=== PATIENT | male | born 1950 | race Caucasian/White ===

== ENCOUNTER → 2016-11-06 | Day surgery (SDC) | payer OTHER ==
[2016-10-27 11:21] VITALS: BMI 28.0
[~2016-11-06] VITALS: Ht 175.3 cm; Wt 87.3 kg
[~2016-11-06] MED LIST: ADVIN10/60 INH; AMLO-114 PO; CLOTLOT2 TOP; EZET10TA38 PO; FLUT0.15 NAE; HYDR-3124 PO; HYZ/10015 PO; LIDOCAINE HCL 2% 2 ML VIAL (20MG/ML) ONE; METO50TA7 PO; MIDAZOLAM HCL 1 MG/ML 2ML VIAL ONE; NSNN50; ONDANSETRON INJ 2 MG/ML 2 ML VIAL ONE; PROAIR INH; PROPOFOL IV EMULSION 10 MG/ML 20 ML VIAL IV ONE; SODIUM CHLORIDE 0.9% 500ML 500 ML IV ONE; SULF800T23 PO; TOBRSUS OPB
[2016-11-06 10:25] VITALS: Ht 175.3 cm; Wt 87.3 kg
[2016-11-06 10:30] VITALS: TEMP 37.1
--- NOTE | 2016-11-06 10:55 | Endo History and Physical ---
History & Physical Date of Service: Nov 06, 2016. Chief Complaint: screening for colon cancer Referring Physician: Dr. Sedrick Mayen History of Present Illness 66 yo CM who presents for screening colonoscopy. Past Surgical History Hx Cardiac Surgery: No Hx Internal Defibrillator: No Hx Pacemaker: No Hx Abdominal Surgery: No Hx of Implantable Prosthesis: No Hx Post-Op Nausea and Vomiting: No Hx Cancer Surgery: No Hx Thoracic Surgery: No Hx Orthopedic: No Hx Urinary Tract Surgery: No Family History None Social History Smoking Status: Current Some Day Smoker Hx Substance Use: No Hx Alcohol Use: Yes (WINE) Allergies Coded Allergies: No Known Allergies (Verified , 11/06/16) Current Medications Reported Home Medications Medications Dose Route/Sig Max Daily Dose Days Date Category Vytorin 10MG/20MG (Ezetimibe/Simvastatin) Tab 1 Tab PO QPM 10/27/16 Reported Nasonex (Mometasone Furoate (Nasal)) 50 Mcg/ Spr 2 [place] NA DAILY 03/10/12 Reported Toprol-Xl (Metoprolol Succinate) 50 Mg Tabcr 50 Mg PO QAM 03/10/12 Reported Hyzaar 25MG/100MG (HCTZ/Losartan Potassium) 1 Ea Tab 1 Tab PO QAM 03/10/12 Reported Advair Diskus 100/50 60 Dose (Fluticasone Prop/Salmeterol) 1 Ea Aerp 1 Puff INH BID 03/10/12 Reported Vital Signs Weight (Kilograms): 87.27 Height (Feet): 5 Height (Inches): 9 Date Time Temp Pulse Resp B/P Pulse Ox O2 Delivery O2 Flow Rate FiO2 11/06/16 10:30 37.1 72 18 147/72 96 Room Air Physical Exam General Appearance: WD/WN, no apparent distress Respiratory/Chest: Auscultation: breath sounds normal Cardiovascular: Heart Auscultation: RRR Abdomen: Bowel Sounds: normal Inspection & Palpation: soft, non-distended, no tenderness, guarding & rebound Assessment and Plan Assessment: 66 yo CM who presents for screening colonoscopy. Plan: Proceed with colonoscopy.
--- NOTE | 2016-11-06 11:16 | GI REPORT ---
Procedure Date: 11/06/2016 10:40 AM Procedure: Colonoscopy Indications: Screening for colorectal malignant neoplasm Medicines: Monitored Anesthesia Care Complications: No immediate complications. Estimated Blood Loss: Estimated blood loss: none. Procedure: Pre-Anesthesia Assessment: - Prior to the procedure, a History and Physical was performed, and patient medications and allergies were reviewed. The patient's tolerance of previous anesthesia was also reviewed. The risks and benefits of the procedure and the sedation options and risks were discussed with the patient. All questions were answered, and informed consent was obtained. Prior Anticoagulants: The patient has taken no previous anticoagulant or antiplatelet agents. ASA Grade Assessment: II - A patient with mild systemic disease. After reviewing the risks and benefits, the patient was deemed in satisfactory condition to undergo the procedure. After I obtained informed consent, the scope was passed under direct vision. Throughout the procedure, the patient's blood pressure, pulse, and oxygen saturations were monitored continuously. The Scope was introduced through the anus and advanced to the terminal ileum. The colonoscopy was performed without difficulty. The patient tolerated the procedure well. The quality of the bowel preparation was good. The terminal ileum, the appendiceal orifice and the rectum were photographed. Findings: A 4 mm polyp was found in the rectum. The polyp was sessile. The polyp was removed with a hot snare. Resection and retrieval were complete. Multiple small-mouthed diverticula were found in the sigmoid colon. Non-bleeding internal hemorrhoids were found during retroflexion. The hemorrhoids were small. Impression: - One 4 mm polyp in the rectum, removed with a hot snare. Resected and retrieved. - Diverticulosis in the sigmoid colon. - Non-bleeding internal hemorrhoids. Recommendation: - Resume previous diet. - Continue present medications. - Repeat colonoscopy for surveillance based on pathology results. - Return to primary care physician as previously scheduled. Byron Orozco DO 11/06/2016 11:15:45 AM This report has been signed electronically. Note Initiated On: 11/06/2016 10:40 AM I attest to the content of the Intraoperative Record and orders documented therein, exceptions below
--- NOTE | 2016-11-06 11:17 | Discharge Instructions ---
Endoscopy Patient Instructions Date / Procedure(s) Performed Nov 06, 2016. Colonoscopy Allergy Information Coded Allergies: No Known Allergies (Verified , 11/06/16) Discharge Date / Findings Nov 06, 2016. Rectal polyp Diverticulosis Internal hemorrhoids Medication Instructions OK to resume all medications today as prescribed. Reported Home Medications Medications Dose Route/Sig Max Daily Dose Days Date Category Vytorin 10MG/20MG (Ezetimibe/Simvastatin) Tab 1 Tab PO QPM 10/27/16 Reported Nasonex (Mometasone Furoate (Nasal)) 50 Mcg/ Spr 2 [place] NA DAILY 03/10/12 Reported Toprol-Xl (Metoprolol Succinate) 50 Mg Tabcr 50 Mg PO QAM 03/10/12 Reported Hyzaar 25MG/100MG (HCTZ/Losartan Potassium) 1 Ea Tab 1 Tab PO QAM 03/10/12 Reported Advair Diskus 100/50 60 Dose (Fluticasone Prop/Salmeterol) 1 Ea Aerp 1 Puff INH BID 03/10/12 Reported Provider Instructions Activity Restrictions - No exercising or heavy lifting for 24 hours. - Do not drink alcohol the day of the procedure. - Do not drive a car or operate machinery until the day after the procedure. - Do not make any important decisions or sign important papers in 24 hours after the procedure. Following Day: - Return to full activity which may include returning to work/school. Diet Start your diet with liquids and light foods (jello, soup, juice, toast). Then eat your usual diet if not nauseated. Treatment For Common After Affects For mild abdominal pain, bloating, or excessive gas: - Rest - Eat lightly - Lie on right side Follow-Up Information Follow-up with Dr. Sedrick Mayen as scheduled Anesthesia Information What You Should Know You have had a procedure that required some medicine to reduce anxiety and discomfort. This treatment is called moderate sedation. After receiving the treatment, you may be sleepy, but you will be able to breathe on your own. The effects of the treatment may last for several hours. Follow these instructions along with Activity/Diet recommendations noted above: * Do NOT do anything where dizziness or clumsiness would be dangerous. * Rest quietly at home today, then you can be up and about tomorrow. * Have a responsible person stay with you the rest of today. * You may have had an I.V. today. If so, you may take the dressing off later today. Recommendations Call your doctor if: * Trouble breathing * Continuous vomiting for more than 24 hours * Temperature above 101 degrees * Severe abdominal pain or bloating * Pain not relieved by pain medicine ordered * There is increased drainage or redness from any incision * A large amount of rectal bleeding greater than 2-3 tablespoons. (If you had a polyp/s removed or have hemorrhoids, a small amount of blood - from the rectum is to be expected.) * You have any unanswered questions or concerns. IN THE EVENT OF A SERIOUS EMERGENCY, GO TO THE NEAREST EMERGENCY ROOM Your discharge instructions were prepared by provider Byron Orozco. Patient Instructions Signature Page Karri Lockhart Patient (or Guardian) Signature/Date: I have read and understand the instructions given to me by my caregivers. Caregiver/RN/Doctor Signature/Date: The above-named patient and/or guardian has received patient instructions on this date. + Original Patient Signature Page (only) stays with chart. Please make copy for patient.
[2016-11-06 11:46] VITALS: BP 132/79; PULSE 68; O2SAT 99
--- NOTE | 2016-11-06 12:33 | Anesthesiology Progress Note ---
Anesthesia Post Op Note Date & Time Nov 06, 2016 at 12:34 Vital Signs Pain Intensity: 0 Vital Signs Past 12 Hours Date Time Temp Pulse Resp B/P Pulse Ox O2 Delivery O2 Flow Rate FiO2 11/06/16 11:46 68 16 132/79 99 Room Air 11/06/16 11:31 70 20 130/74 99 Nasal Cannula 3 11/06/16 11:16 65 20 110/63 99 Nasal Cannula 3 11/06/16 10:30 37.1 72 18 147/72 96 Room Air Notes Mental Status: alert / awake / arousable, participated in evaluation Pt Amnestic to Procedure: Yes Nausea / Vomiting: adequately controlled Pain: adequately controlled Airway Patency, RR, SpO2: stable & adequate BP & HR: stable & adequate Hydration State: stable & adequate Anesthetic Complications: no major complications apparent
== END | disposition home or self-care (01) ==
LOC: C.GI 10:07
PROVIDERS: ATTEND Internal Medicine
DX: Z12.11 Encounter for screening for malignant neoplasm of colon (principal); K62.1 Rectal polyp; F17.200 Nicotine dependence, unspecified, uncomplicated; K64.9 Unspecified hemorrhoids; K57.30 Diverticulosis of large intestine without perforation or abscess without bleeding

== ENCOUNTER → 2017-01-16 | Outpatient (CLI) | payer OTHER ==
[~2017-01-16] MED LIST changes: -LIDOCAINE HCL 2% 2 ML VIAL (20MG/ML) ONE; -MIDAZOLAM HCL 1 MG/ML 2ML VIAL ONE; -ONDANSETRON INJ 2 MG/ML 2 ML VIAL ONE; -PROPOFOL IV EMULSION 10 MG/ML 20 ML VIAL IV ONE; -SODIUM CHLORIDE 0.9% 500ML 500 ML IV ONE
[2017-01-16 14:35] LABS: URINE APPEARANCE CLOUDY (CLEAR); URINE BILIRUBIN NEG (NEG); URINE COLOR YELLOW; URINE NITRITE NEG (NEG); URINE SPECIFIC GRAVITY 1.015 (1.000-1.030); UROBILINOGEN NEG (NEG)
[2017-01-16 14:43] LABS: MANUAL MICROSCOPIC REQUIRED? NO; REVIEW REQ? NO
== END | disposition home or self-care (01) ==
LOC: C.LABSPEC 13:29
PROVIDERS: ATTEND Internal Medicine
DX: N41.0 Acute prostatitis (principal)

== ENCOUNTER 2017-01-17 17:51 | Emergency (ER) | payer OTHER ==
[~2017-01-17] VITALS: Ht 175.3 cm; Wt 89.7 kg
[~2017-01-17 17:51] MED LIST changes: -AMLO-114 PO; -CLOTLOT2 TOP; -FLUT0.15 NAE; -HYDR-3124 PO; -PROAIR INH; -SULF800T23 PO; -TOBRSUS OPB
[2017-01-17 17:56] VITALS: Ht 175.3 cm; Wt 89.7 kg
[2017-01-17] MEDS ORDERED: SODIUM CHLORIDE 0.9% 1000ML 1,000 ML IV STA ×2 (18:13→19:16)
[2017-01-17] MEDS ORDERED: FLUT0.15 NAE (18:31)
[2017-01-17] MEDS ORDERED: PROAIR INH (18:38)
[2017-01-17] MEDS ORDERED: HYDR-3124 PO (18:38)
[2017-01-17] MEDS ORDERED: AMLO-114 PO (18:38)
[2017-01-17] MEDS ORDERED: SULF800T23 PO (18:38)
[2017-01-17] MEDS ORDERED: TOBRSUS OPB (18:38)
[2017-01-17] MEDS ORDERED: CLOTLOT2 TOP (18:38)
[2017-01-17 18:40] LABS: BASO % 0.2 %; BASO ABS # 0.02 K/uL (0-0.2); COMPLETE YES; EOS % 0.8 %; HEMATOCRIT 47.8 % (42-52); IG% 0.3 %; LYMPH % 14.2 %; LYMPH ABS # 1.73 K/uL (1.2-3.4); MEAN CELL VOLUME 92.5 fL (80-100); MEAN CORPUSCULAR HEMOGLOBIN 33.1 pg (25-34); MEAN CORPUSCULAR HGB CONC 35.8 g/dl (32-36); MONO % 10.3 %; NEUT % 74.2 %; PLATELET COUNT 173 K/uL (130-400); RED BLOOD COUNT 5.17 M/uL (4.7-6.1); WHITE BLOOD COUNT 12.19 K/uL (4.8-10.8)
[2017-01-17 19:00] LABS: BUN/CREATININE RATIO 11.4 (10-20); CALCIUM 9.5 mg/dl (8.5-10.1); CREATININE 1.9 mg/dl (0.60-1.40)
[2017-01-17 19:06] LABS: POTASSIUM 3.6 mmol/L (3.5-5.1)
[2017-01-17] MEDS ORDERED: CEFTRIAXONE SOD INJ 1 GM ADDVIAL IV STA (19:12)
--- NOTE | 2017-01-17 19:47 | EMERGENCY ROOM VISIT NOTE ---
History Report prepared by Lloyd: Joy Julien Under the Supervision of: Dr. Dickson Rodriguez M.D. First contact with patient: 18:04 Chief Complaint: BACK PAIN Stated Complaint: LOWER BACK PAIN, CHILLS History of Present Illness The patient is a 66 year old male who presents to the Emergency Room with complaints of worsening lower back pain that started 3 days ago. The patient is also experiencing chills, fatigue, and loss of appetite which started 3 days ago too. The patient saw his PCP, Dr. Mayen, yesterday for pain with urination. His PCP diagnosed him with prostatitis and started him on a 14 day course of antibiotics. Per the patient's , the patient's urine culture from yesterday grew out E. coli, so they told him to come into the ED to make sure that the infection didn't get into his blood. Since starting the antibiotics, the patient's pain with urination has improved significantly. The patient denies any pain with bowel movements. Source of History: patient Onset: 3 days ago Position: back (lower) Timing: worsening Associated Symptoms: + chills, + fatigue Note: loss of appetite, no pain with bowel movements Review of Systems See HPI for pertinent positives & negatives. A total of 10 systems reviewed and were otherwise negative. Past Medical & Surgical Medical Problems: (1) Asthma (2) Hypertension Family History Hypertension Social History Smoking Status: Current Every Day Smoker Alcohol Use: occasionally Marital Status: Housing Status: lives with family Current/Historical Medications Scheduled Amlodipine (Norvasc), 10 MG PO QPM Ezetimibe/Simvastatin (Vytorin 10MG/20MG), 1 TAB PO QPM Fluticasone Prop/Salmeterol (Advair Diskus 100/50 60 Dose), 1 PUFF INH BID Fluticasone Propionate (Nasal) (Flonase Allergy Relief), 2 SPRAYS [place] DAILY Hctz/Losartan (Hyzaar 25MG/100MG), 1 TAB PO QAM Hydroxyzine Hcl (Atarax), 25 MG PO BID Metoprolol Succ (Toprol Xl) (Toprol-Xl), 50 MG PO QAM Sulfa/Trimethoprim (Bactrim Ds 800MG/160MG), 1 TAB PO BID Tobramycin/Dexamethasone 0.3% Oph (Tobradex 0.3% Oph), OPB UD Scheduled PRN Clotrimazole W/ Betamethasone (Clotrimazole/Betamethason), 1 APPLN TOP BID PRN for PRN [Proair], 2 PUFF INH Q4 PRN for SOB/Wheezing Allergies Coded Allergies: No Known Allergies (Verified , 11/06/16) Physical Exam Vital Signs Date Time Temp Pulse Resp B/P Pulse Ox O2 Delivery O2 Flow Rate FiO2 01/17/17 19:04 74 18 123/72 92 Room Air 01/17/17 17:56 36.7 80 18 137/85 94 Room Air Physical Exam GENERAL: Patient is well appearing and in minimal distress. HEENT: No acute trauma, normocephalic atraumatic, mucous membranes dry, no nasal congestion, no scleral icterus. NECK: No stridor, no adenopathy, no meningismus, trachea is midline. LUNGS: No dyspnea. Clear to auscultation and equal bilaterally. No wheeze, no rhonchi. HEART: Regular rate and rhythm. No murmurs, rubs, gallops appreciated. ABDOMEN: Soft, nontender, bowel sounds positive, no masses appreciated, no peritonitis. BACK: No midline tenderness, no CVA tenderness EXTREMITIES: Normal motion all extremities, no cyanosis, no edema. NEUROLOGIC: Alert and oriented, no acute motor or sensory deficits, no focal weakness, cranial nerves grossly intact. SKIN: No rash, no jaundice, no diaphoresis. Medical Decision & Procedures ER Provider Diagnostic Interpretation: CT results and stated below per my review and radiologist interpretation: ABDOMEN AND PELVIS CT WITHOUT CONTRAST IMPRESSION: 1. Mild fullness of the renal collecting systems bilaterally with mild perinephric infiltrative change. Consideration of potential polynephritis versus recently passed calculus must be considered 2. No evidence for an obstructing urinary tract calculus. 3. Nonobstructive bowel pattern. 4. Mild bladder wall thickening. 5. Mild prostate enlargement. Electronically signed by: Alvino Mcfarlane M.D. 01/17/2017 7:54 PM Dictated Date/Time: 01/17/2017 7:51 PM Laboratory Results 01/17/17 18:28 Red Blood Count 5.17, Mean Corpuscular Volume 92.5, Mean Corpuscular Hemoglobin 33.1, Mean Corpuscular Hemoglobin Concent 35.8, Mean Platelet Volume 11.0, Neutrophils (%) (Auto) 74.2, Lymphocytes (%) (Auto) 14.2, Monocytes (%) (Auto) 10.3, Eosinophils (%) (Auto) 0.8, Basophils (%) (Auto) 0.2, Neutrophils # (Auto ) 9.04, Lymphocytes # (Auto) 1.73, Monocytes # (Auto) 1.26, Eosinophils # (Auto ) 0.10, Basophils # (Auto) 0.02 01/17/17 18:28 Test 01/17/17 18:28 White Blood Count 12.19 K/uL (4.8-10.8) Red Blood Count 5.17 M/uL (4.7-6.1) Hemoglobin 17.1 g/dL (14.0-18.0) Hematocrit 47.8 % (42-52) Mean Corpuscular Volume 92.5 fL (80-100) Mean Corpuscular Hemoglobin 33.1 pg (25-34) Mean Corpuscular Hemoglobin Concent 35.8 g/dl (32-36) Platelet Count 173 K/uL (130-400) Mean Platelet Volume 11.0 fL (7.4-10.4) Neutrophils (%) (Auto) 74.2 % Lymphocytes (%) (Auto) 14.2 % Monocytes (%) (Auto) 10.3 % Eosinophils (%) (Auto) 0.8 % Basophils (%) (Auto) 0.2 % Neutrophils # (Auto) 9.04 K/uL (1.4-6.5) Lymphocytes # (Auto) 1.73 K/uL (1.2-3.4) Monocytes # (Auto) 1.26 K/uL (0.11-0.59) Eosinophils # (Auto) 0.10 K/uL (0-0.5) Basophils # (Auto) 0.02 K/uL (0-0.2) RDW Standard Deviation 47.5 fL (36.4-46.3) RDW Coefficient of Variation 14.1 % (11.5-14.5) Immature Granulocyte % (Auto) 0.3 % Immature Granulocyte # (Auto) 0.04 K/uL (0.00-0.02) Anion Gap 11.0 mmol/L (3-11) Est Creatinine Clear Calc Drug Dose 41.2 ml/min Estimated GFR () 41.1 Estimated GFR (Non- 35.4 BUN/Creatinine Ratio 11.4 (10-20) Calcium Level 9.5 mg/dl (8.5-10.1) Laboratory results as reviewed by me. Medications Administered Medications (Trade) Dose Ordered Sig/Nii Route Start Time Stop Time Status Last Admin Dose Admin Sodium Chloride (Nss 1000ml) 1,000 ml @ 999 mls/hr Q1H1M STAT IV 01/17/17 18:13 01/17/17 19:13 DC 01/17/17 18:37 999 MLS/HR Ceftriaxone Sodium 1 gm 1 gm NOW STAT IV 01/17/17 19:12 01/17/17 19:13 DC 01/17/17 19:20 1 GM Sodium Chloride (Nss 1000ml) 1,000 ml @ 999 mls/hr Q1H1M STAT IV 01/17/17 19:16 01/17/17 20:16 DC 01/17/17 19:16 999 MLS/HR ED Course 1806: The patient was evaluated in room C1. A complete history and physical exam was performed. 1812: Ordered Sodium Chloride 1000 ml @ 999 mls/hr IV 1911: Ordered Rocephin Inj 1 gm IV 1913: I reassessed the patient. He notes that he is feeling a little better. He is agreeable to having a CT scan done, along with IV antibiotics and further IV fluids. I also updated the patient's . 1915: Ordered Sodium Chloride 1000 ml @ 999 mls/hr IV 2000: Reevaluated the patient. Discussed results and discharge instructions: he verbalized understanding and agreement. The patient is ready for discharge. Medical Decision Differential: UTI, prostatitis, diverticulitis, sepsis/bacteremia, amongst other pathologies entertained. 66 yr old male arrives with complaint of low back pain in setting of Ecoli positive UTI/prostatitis. PCP did rectal exam which patient declines to have done again which I think is reasonable, especially given would prefer not to further risk seeding. WBC just mildly elevated, afebrile, not tachy, and lactic normal thus he is not septic and and is stable. Labs look already. With low back pain and significant hematuria will go ahead with CT which reveals fortunately no ureteral stones. Bladder is thickened. He is already prescribed abx thus advised continuing them. Stable and feeling well at discharge. Impression Primary Impression: Urinary tract infection Additional Impressions: Prostatitis Renal insufficiency Scribe Attestation The scribe's documentation has been prepared under my direction and personally reviewed by me in its entirety. I confirm that the note above accurately reflects all work, treatment, procedures, and medical decision making performed by me. Departure Information Dispostion Home / Self-Care Referrals Isaac Mayen M.D. (PCP) Forms HOME CARE DOCUMENTATION FORM, IMPORTANT VISIT INFORMATION Patient Instructions My [facility] Additional Instructions Continue current antibiotic as prescribed by your Primary Provider. Please follow up early next week with your PCP to make sure your Kidney function is rechecked. Your Creatinine (Cr) was elevated at 1.9 which is a bit higher than where your usually is. Return immediately if severe pain, fevers, vomiting, passing out, or other concerns. It is important to keep well hydrated. Avoid any NSAID medications. This includes Motrin, Aleve, Advil, Naproxen, ibuprofen, etc as these may harm your kidneys. Tylenol (acetaminophen) is perfectly safe for your kidneys. Problem Qualifiers Primary Impression: Urinary tract infection Urinary tract infection type: acute cystitis Hematuria presence: with hematuria Qualified Codes: N30.01 - Acute cystitis with hematuria Additional Impressions: Prostatitis Prostatitis type: acute Qualified Codes: N41.0 - Acute prostatitis
--- NOTE | 2017-01-17 19:57 | DIAGNOSTIC IMAGING REPORT ---
ABDOMEN AND PELVIS CT WITHOUT CONTRAST CT DOSE: 880.27 mGy.cm HISTORY: Pain. Hematuria. lower back pain, blood in urine TECHNIQUE: Multiaxial CT images of the abdomen and pelvis were performed without the use of intravenous and oral contrast according to the standard department stone protocol. COMPARISON STUDY: None. FINDINGS: Lung bases are clear mild fullness of the renal collecting systems bilaterally. Mild infiltrative change of the perinephric fat bilaterally. 2 mm nonobstructing calcification mid pole right kidney. Mild bladder wall thickening. Moderate prosthetic enlargement. No evidence for an obstructing urinary tract calculus. Chronic colonic diverticulosis. No evidence for diverticulitis. IMPRESSION: 1. Mild fullness of the renal collecting systems bilaterally with mild perinephric infiltrative change. Consideration of potential polynephritis versus recently passed calculus must be considered 2. No evidence for an obstructing urinary tract calculus. 3. Nonobstructive bowel pattern. 4. Mild bladder wall thickening. 5. Mild prostate enlargement. Electronically signed by: Alvino Mcfarlane M.D. 01/17/2017 7:54 PM Dictated Date/Time: 01/17/2017 7:51 PM
[2017-01-17 21:20] VITALS: BP 134/70; PULSE 70; TEMP 36.7; O2SAT 97
== END 2017-01-17 20:30 | disposition home or self-care (01) ==
LOC: C.EDB 17:53 → C.EDC 20:30
DX: N39.0 Urinary tract infection, site not specified (principal); N41.0 Acute prostatitis; N28.9 Disorder of kidney and ureter, unspecified; J45.909 Unspecified asthma, uncomplicated; I10 Essential (primary) hypertension; F17.210 Nicotine dependence, cigarettes, uncomplicated; Z79.899 Other long term (current) drug therapy

== ENCOUNTER → 2017-01-22 | Outpatient (CLI) | payer OTHER ==
[~2017-01-22] MED LIST changes: +AMLO-114 PO; +CLOTLOT2 TOP; +FLUT0.15 NAE; +HYDR-3124 PO; -NSNN50; +PROAIR INH; +SULF800T23 PO; +TOBRSUS OPB
[2017-01-22 13:36] LABS: BASO % 0.6 %; BASO ABS # 0.05 K/uL (0-0.2); COMPLETE YES; HEMATOCRIT 47.9 % (42-52); LYMPH % 31.4 %; LYMPH ABS # 2.61 K/uL (1.2-3.4); MEAN CORPUSCULAR HEMOGLOBIN 32.6 pg (25-34); MEAN CORPUSCULAR HGB CONC 35.1 g/dl (32-36); MEAN PLATELET VOLUME 11.4 fL (7.4-10.4); MONO % 9.4 %; NEUT % 54.6 %; PLATELET COUNT 228 K/uL (130-400); RED BLOOD COUNT 5.15 M/uL (4.7-6.1); WHITE BLOOD COUNT 8.32 K/uL (4.8-10.8)
[2017-01-22 14:49] LABS: BLOOD UREA NITROGEN 24 mg/dl (7-18); BUN/CREATININE RATIO 15.9 (10-20); CALCIUM 9.1 mg/dl (8.5-10.1); CARBON DIOXIDE 26 mmol/L (21-32); CHLORIDE 104 mmol/L (98-107); GLUCOSE 130 mg/dl (70-99); POTASSIUM 3.9 mmol/L (3.5-5.1); SODIUM 137 mmol/L (136-145)
[2017-01-22 15:07] LABS: URINE APPEARANCE CLEAR (CLEAR); URINE BILIRUBIN NEG (NEG); URINE COLOR YELLOW; URINE NITRITE NEG (NEG); URINE SPECIFIC GRAVITY 1.018 (1.000-1.030); UROBILINOGEN NEG (NEG)
[2017-01-22 15:20] LABS: MANUAL MICROSCOPIC REQUIRED? NO; REVIEW REQ? NO
== END | disposition home or self-care (01) ==
LOC: C.LABBC 11:26
PROVIDERS: ATTEND Internal Medicine
DX: R31.9 Hematuria, unspecified (principal); N39.0 Urinary tract infection, site not specified

== ENCOUNTER → 2017-01-25 | Outpatient (CLI) | payer OTHER | END | disposition home or self-care (01) | LOC: C.PATHSPEC 17:16 | PROVIDERS: ATTEND Urology | DX: R31.0 Gross hematuria (principal) ==

== ENCOUNTER → 2017-03-05 | Outpatient (CLI) | payer OTHER ==
[~2017-03-05] MED LIST changes: +OPTIRAY 320 IV PRN
--- NOTE | 2017-03-05 11:43 | DIAGNOSTIC IMAGING REPORT ---
CT ABD/PELVIS IV CONTRAST ONLY CLINICAL HISTORY: R31.0 Hematuria, COMPARISON STUDY: 01/17/2017 TECHNIQUE: The patient was injected with 50 cc of Optiray 320. After 5 minute delay, the patient was reinjected with 68 cc of Optiray 320, and CT scanning of the abdomen and pelvis was performed from the lung bases to the proximal femurs. Images are reviewed in the axial, sagittal, and coronal planes. IV contrast was administered without complication. CT DOSE: 447.60 mGy.cm FINDINGS: Lower chest: The heart is normal in size and configuration, without pericardial effusion. The lung bases and pleural spaces are clear. Liver: There is mild hepatic steatosis. No focal masses are visualized. Gallbladder: Unremarkable. Spleen: Normal in size and attenuation. Pancreas: Unremarkable. Adrenal glands: Unremarkable. Kidneys: No renal masses are visualized. No collecting system filling defects are visualized. No ureteral lesions are visualized. There is no significant hydronephrosis. Bowel: There are no transition zones indicate bowel obstruction. There is no evidence of acute appendicitis. There is no evidence of acute diverticulitis. Peritoneum: There is no intraperitoneal free air or abdominal ascites. There is rectus diastases. There is a small fat-containing umbilical hernia. There are postsurgical changes of a presumed prior left inguinal hernia repair. Vasculature: The abdominal aorta is normal in course and caliber. Adenopathy: There are prominent para-aortic lymph nodes including an enlarged 14 mm left para aortic lymph node just inferior to the renal hilar level. Common femoral lymph nodes are the upper limits of normal in size. Pelvic viscera: There is mild prostamegaly. There are prostatic calcifications present. There is a 3.5 mm posterior bladder nodule. It is not producing performed, cystoscopic correlation should be obtained. Skeletal structures: No destructive osseous lesions are seen. IMPRESSION: 1. No renal masses identified 2. 3.5 mm posterior bladder nodule. It is unclear whether this arises from the mucosa, or whether this represents a free floating "filling defect". If not previously performed, cystoscopic evaluation should be considered. 3. No collecting system or ureteral lesions identified 4. Mild para-aortic lymphadenopathy Electronically signed by: Lokesh Glynn M.D. 03/05/2017 11:41 AM Dictated Date/Time: 03/05/2017 11:28 AM
== END | disposition home or self-care (01) ==
LOC: C.CTS 11:06
PROVIDERS: ATTEND Urology
DX: R31.0 Gross hematuria (principal); N32.9 Bladder disorder, unspecified

== ENCOUNTER → 2017-03-07 | Outpatient (CLI) | payer OTHER ==
[~2017-03-07] MED LIST changes: -OPTIRAY 320 IV PRN
== END | disposition home or self-care (01) ==
LOC: C.PATHSPEC 17:14
PROVIDERS: ATTEND Urology
DX: R31.9 Hematuria, unspecified (principal); R31.0 Gross hematuria; R82.99 Other abnormal findings in urine

== ENCOUNTER → 2017-04-10 | Outpatient (CLI) | payer OTHER ==
[2017-04-10 11:31] LABS: ALT/SGPT 45 U/L (12-78); BLOOD UREA NITROGEN 19 mg/dl (7-18); BUN/CREATININE RATIO 16.1 (10-20); CALCIUM 9.4 mg/dl (8.5-10.1); CARBON DIOXIDE 28 mmol/L (21-32); CHLORIDE 104 mmol/L (98-107); CHOLESTEROL 192 mg/dl (0-200); GLUCOSE 120 mg/dl (70-99); POTASSIUM 3.7 mmol/L (3.5-5.1); SODIUM 140 mmol/L (136-145); TRIGLYCERIDES 113 mg/dl (0-150); VERY LOW DENSITY LIPOPROT CALC 23 mg/dl
[2017-04-10 11:33] LABS: ESTIMATED AVERAGE GLUCOSE 126 mg/dl; HA1C FLAG Normal (Normal)
[2017-04-10 11:36] LABS: ALKALINE PHOSPHATASE 51 U/L (45-117); AST/SGOT 21 U/L (15-37); CHOLESTEROL/HDL RATIO 3.3; HDL CHOLESTEROL 58 mg/dl; LDL CHOLESTEROL CALCULATED 111 mg/dl; PROSTATE SPECIFIC ANTIGEN 0.908 ng/ml (0.000-4.000)
== END | disposition home or self-care (01) ==
LOC: C.LABBC 08:00
PROVIDERS: ATTEND Urology
DX: N39.0 Urinary tract infection, site not specified (principal); N40.1 Benign prostatic hyperplasia with lower urinary tract symptoms; Z87.448 Personal history of other diseases of urinary system; R73.01 Impaired fasting glucose

== ENCOUNTER → 2017-11-08 | Outpatient (CLI) | payer OTHER ==
[~2017-11-08] MED LIST changes: -METO50TA7 PO; +METO50TA8 PO
[2017-11-08 17:55] LABS: BLOOD UREA NITROGEN 23 mg/dl (7-18); CREATININE 1.27 mg/dl (0.60-1.40)
== END | disposition home or self-care (01) ==
LOC: C.LABBC 14:07
PROVIDERS: ATTEND Radiology Diagnostic Radiology
DX: Z01.812 Encounter for preprocedural laboratory examination (principal)

== ENCOUNTER → 2017-11-09 | Outpatient (CLI) | payer OTHER ==
[~2017-11-09] MED LIST changes: +GADAVIST IV PRN
--- NOTE | 2017-11-09 08:10 | DIAGNOSTIC IMAGING REPORT ---
BRAIN COMBO HISTORY: 67 years-old Male D36.10 [id number] follow-up study in a patient with history of schwannoma. COMPARISON: Brain MR 01/05/2010 TECHNIQUE: Multiplanar multisequence MRI of the brain was obtained both with and without the use of 8.5 mL Gadavist FINDINGS: There is no restricted diffusion to suggest acute infarction. Midline structures including the corpus callosum, brainstem, optic chiasm, infundibulum, pituitary and pineal glands appear unremarkable on the sagittal T1 series. No cerebellar tonsillar herniation. Degenerative changes are seen within the imaged cervical spine. There is mild cerebral atrophy without acute intracranial hemorrhage, midline shift or hydrocephalus. Scattered T2/flair hyperintensities are seen within the periventricular and subcortical white matter suggesting mild chronic microvascular ischemic changes. The major flow voids at the level of the skull base appear patent. Trace right mastoid effusion. Moderate mucoperiosteal thickening of the paranasal sinuses, right greater than left. Moderate sphenoid and mild ethmoid sinus disease also noted. Metopic suture noted. There is a lobulated T1 and T2 isointense avidly enhancing mass of the right internal auditory canal which demonstrates thick peripheral enhancement, 1.1 x 1.5 x 0.8 cm, previously 1.5 x 1.8 x 1.0 cm, nicely seen on images 39 of series 15 and image 7 of series 14. On prior study, there was more central enhancement than on today's exam. No additional abnormal intra-axial or extra-axial enhancement. The left internal auditory canals, seventh and eighth corners of the left appear normal. The bilateral trigeminal nerves appear to be unremarkable.. IMPRESSION: 1. Lobulated enhancing mass of the right internal auditory canal demonstrates imaging features most compatible with a vestibular schwannoma and as mildly decreased in size from comparison study 01/05/2010 with mildly progressive central degeneration. 2. Mild chronic microvascular ischemic changes. 3. Paranasal sinus disease as above. The above report was generated using voice recognition software. It may contain grammatical, syntax or spelling errors. Electronically signed by: Liam Perkins M.D. 11/09/2017 8:09 AM Dictated Date/Time: 11/09/2017 7:45 AM
== END | disposition home or self-care (01) ==
LOC: C.MRIBC 06:34
PROVIDERS: ATTEND Internal Medicine
DX: D36.10 Benign neoplasm of peripheral nerves and autonomic nervous system, unspecified (principal)

== ENCOUNTER → 2017-12-05 | Outpatient (CLI) | payer OTHER ==
[~2017-12-05] MED LIST changes: -GADAVIST IV PRN
[2017-12-05 11:03] LABS: BASO % 0.5 %; BASO ABS # 0.03 K/uL (0-0.2); EOS % 2.5 %; EOS ABS # 0.16 K/uL (0-0.5); HEMATOCRIT 50.2 % (42-52); HEMOGLOBIN 17.5 g/dL (14.0-18.0); IG# 0.05 K/uL (0.00-0.02); LYMPH % 45.6 %; MEAN CELL VOLUME 91.9 fL (80-100); MEAN CORPUSCULAR HEMOGLOBIN 32.1 pg (25-34); MEAN CORPUSCULAR HGB CONC 34.9 g/dl (32-36); MONO % 9.7 %; MONO ABS # 0.62 K/uL (0.11-0.59); NEUT % 40.9 %; PLATELET COUNT 203 K/uL (130-400); RED CELL DISTRIBUTION WIDTH CV 14.1 % (11.5-14.5); RED CELL DISTRIBUTION WIDTH SD 47.2 fL (36.4-46.3); WHITE BLOOD COUNT 6.36 K/uL (4.8-10.8)
[2017-12-05 11:23] LABS: ALBUMIN 3.7 gm/dl (3.4-5.0); ALT/SGPT 53 U/L (12-78); AST/SGOT 24 U/L (15-37); BLOOD UREA NITROGEN 23 mg/dl (7-18); CALCIUM 9.1 mg/dl (8.5-10.1); CARBON DIOXIDE 28 mmol/L (21-32); CREATININE 1.11 mg/dl (0.60-1.40); GLUCOSE 113 mg/dl (70-99); POTASSIUM 3.8 mmol/L (3.5-5.1); SODIUM 137 mmol/L (136-145)
[2017-12-05 11:28] LABS: ALKALINE PHOSPHATASE 63 U/L (45-117); CHOLESTEROL 189 mg/dl (0-200); LDL CHOLESTEROL CALCULATED 112 mg/dl; TOTAL PROTEIN 7.3 gm/dl (6.4-8.2)
[2017-12-05 11:35] LABS: HEMOGLOBIN A1C 6.3 % (4.5-5.6)
== END | disposition home or self-care (01) ==
LOC: C.LABBC 07:28
PROVIDERS: ATTEND Internal Medicine
DX: Z87.438 Personal history of other diseases of male genital organs (principal); N40.1 Benign prostatic hyperplasia with lower urinary tract symptoms; I10 Essential (primary) hypertension; E78.5 Hyperlipidemia, unspecified; G47.33 Obstructive sleep apnea (adult) (pediatric); Z11.59 Encounter for screening for other viral diseases; R73.01 Impaired fasting glucose; M25.471 Effusion, right ankle

== ENCOUNTER → 2018-01-24 | Outpatient (CLI) | payer OTHER ==
[2018-01-24 15:04] LABS: ALBUMIN 3.6 gm/dl (3.4-5.0); BLOOD UREA NITROGEN 21 mg/dl (7-18); CALCIUM 9.3 mg/dl (8.5-10.1); CARBON DIOXIDE 30 mmol/L (21-32); CREATININE 1.62 mg/dl (0.60-1.40); GLUCOSE 146 mg/dl (70-99); PHOSPHORUS 3.4 mg/dl (2.5-4.9); POTASSIUM 3.7 mmol/L (3.5-5.1); SODIUM 136 mmol/L (136-145)
== END | disposition home or self-care (01) ==
LOC: C.LAB1850 14:00
PROVIDERS: ATTEND Internal Medicine Nephrology
DX: I10 Essential (primary) hypertension (principal)

== ENCOUNTER → 2018-01-28 | Outpatient (CLI) | payer OTHER ==
[2018-01-28 10:58] LABS: ALBUMIN 3.7 gm/dl (3.4-5.0); BLOOD UREA NITROGEN 22 mg/dl (7-18); CARBON DIOXIDE 29 mmol/L (21-32); CREATININE 1.17 mg/dl (0.60-1.40); GLUCOSE 98 mg/dl (70-99); PHOSPHORUS 2.9 mg/dl (2.5-4.9); POTASSIUM 3.7 mmol/L (3.5-5.1); SODIUM 140 mmol/L (136-145)
== END | disposition home or self-care (01) ==
LOC: C.LAB1850 09:33
PROVIDERS: ATTEND Internal Medicine Nephrology
DX: N17.9 Acute kidney failure, unspecified (principal)

== ENCOUNTER → 2018-02-19 | Outpatient (CLI) | payer OTHER ==
[2018-02-19 14:56] LABS: ALBUMIN 3.7 gm/dl (3.4-5.0); BLOOD UREA NITROGEN 21 mg/dl (7-18); CALCIUM 8.8 mg/dl (8.5-10.1); CARBON DIOXIDE 30 mmol/L (21-32); CREATININE 1.15 mg/dl (0.60-1.40); GLUCOSE 92 mg/dl (70-99); PHOSPHORUS 2.6 mg/dl (2.5-4.9); POTASSIUM 3.6 mmol/L (3.5-5.1); SODIUM 138 mmol/L (136-145)
== END | disposition home or self-care (01) ==
LOC: C.LAB1850 13:22
PROVIDERS: ATTEND Internal Medicine Nephrology
DX: N17.9 Acute kidney failure, unspecified (principal)